=== PATIENT | female | born 1995 | race Caucasian/White ===

== ENCOUNTER 2018-02-18 08:38 | Emergency (ER) | payer OTHER ==
[2018-02-18 08:47] VITALS: TEMP 98.8; BMI 25.8
--- NOTE | 2018-02-18 08:47 | PDOC ---
History of Present Illness - General Chief Complaint: Vaginal Bleeding Stated Complaint: /VAGINAL BLEEDING Time Seen by Provider: 02/18/18 08:47 - History of Present Illness Initial Comments: 02/18/18 10:12 The patient is a 22 year old 6 week female with no significant PMH who presents for evaluation of vaginal bleeding. The patient reports that she noted some vaginal spotting yesterday evening when wiping prompting her presentation to the ED for further evaluation. She denies similar symptoms in the past and otherwise denies fevers, chills, SOB, chest pain, nausea, vomiting , abdominal pain, vaginal discharge, or changes with urination or bowel movements. Past History - Past Medical History Allergies/Adverse Reactions: Allergies Allergy/AdvReac Type Severity Reaction Status Date / Time No Known Allergies Allergy Verified 02/18/18 08:47 Home Medications: Ambulatory Orders Azithromycin [Zithromax 250mg Tablets -] 250 mg PO UTDICT #6 tab 01/10/15 COPD: No - Suicide/Smoking/Psychosocial Hx Smoking History: Never smoked Have you smoked in the past 12 months: No Hx Alcohol Use: No Drug/Substance Use Hx: No Substance Use Type: None Review of Systems - Review of Systems Comments:: 02/18/18 10:14 Constitutional: No fevers, chills, fatigue, malaise HEENT: No Rhinorrhea, nasal congestion, visual changes Cardiovascular: No chest pain, syncope, palpitations, lightheadedness Respiratory: No Cough, SOB, Hemoptysis, Gastrointestinal: No Abdominal pain, Nausea, Vomiting, Constipation, Diarrhea, Melena Genitourinary: Vaginal bleeding. No Dysuria, Frequency, Urgency, Hesitancy, Hematuria, Flank pain Musculoskeletal: No Myalgia, arthralgia Skin: No rashes, itching, bruising, pallor Neurologic: No Headache, Dizziness, Numbness, Weakness, or Tingling Psychiatric: No Hallucinations. No SI or HI *Physical Exam - Vital Signs Last Vital Signs Temp Pulse Resp BP Pulse Ox 98.8 F 91 H 18 129/77 99 02/18/18 08:42 02/18/18 08:42 02/18/18 08:42 02/18/18 08:42 02/18/18 08:42 - Physical Exam Comments: 02/18/18 10:15 General Appearance: Nourished. No Apparent Distress HEENT: No Pharyngeal Erythema, Tonsillar Exudate, Tonsillar Erythema Neck: No Cervical Lymphadenopathy Respiratory/Chest: Lungs Clear, Normal Breath Sounds. No Crackles, Rales, Rhonchi, Wheezing Cardiovascular: Regular Rhythm, Regular Rate. No Murmur, Gallops, Rubs Gastrointestinal/Abdominal: Normal Bowel Sounds, Soft. No Guarding, Rebound, Tenderness Pelvic Exam: Normal External Exam. Closed Cervical Os with some small amount of brown discharge. No CMT or Adenexal tenderness Musculoskeletal: No CVA Tenderness Extremity: Normal Capillary Refill Integumentary: Normal Color, Dry, Warm Neurologic: Fully Oriented, Alert, Normal Mood/Affect, Normal Response, ED Treatment Course - LABORATORY CBC & Chemistry Diagram: 02/18/18 09:17 02/18/18 09:17 Medical Decision Making - Medical Decision Making 02/18/18 10:16 The patient is a 22 year old 6 week female with no significant PMH who presents for evaluation of vaginal bleeding. Given the patient's history and physical exam, we will obtain a cbc, type and screen, coags, ua, beta-quant, transvaginal us to evaluate further. We will continue to monitor and reassess while here in the ED. 02/18/18 18:35 CBC, caots, ua are unremarkable. Transvaginal US demonstrates a normal 6 week as read by our radiologist. We are comfortable discharging the patient home with seo associate follow up. We discussed the results, plan, and return precautions with the patient who voiced understanding and is agreeable with the plan. *DC/Admit/Observation/Transfer Diagnosis at time of Disposition: Vaginal bleeding - Discharge Dispostion Disposition: HOME Condition at time of disposition: Stable - Referrals Referrals: Ghislaine Olivas [Primary Care Provider] - - Patient Instructions Printed Discharge Instructions: DI for Vaginal Bleeding During Additional Instructions: Please return to the ER if you experience concerning or worsening symptoms including worsening abdominal pain, vomiting, or vaginal bleeding. Your lab results and US results were normal here in the ER. Please call to schedule a follow up appointment with your BAKERY WORKER physician within 2-3 days to discuss your ER visit and further management of your symptoms. - Post Discharge Activity
--- NOTE | 2018-02-18 09:16 | PDOC ---
Attending Attestation - Resident Resident Name: Kingsley Mujica - HPI HPI: 02/18/18 10:55 Pt presents to the ED complaining of vaginal spotting that occurred with wiping only after intercourse last night. Denies vaginal discharge, fever, abdominal cramping or passing clots. + IUP on transvaginal US. Rh positive. Likely threatened Ab. Will discharge home with follow up with her OB. 02/18/18 11:25 - Physicial Exam PE: 02/18/18 11:25 Agree with resident exam. As per resident, No bleeding on vaginal exam, os is closed. Abdomen non tender on my exam. - Medical Decision Making 02/18/18 11:26 Pt presents to the ED complaining of vaginal spotting that occurred with wiping only after intercourse last night. + IUP on transvaginal US. Rh positive. Likely threatened Ab. Will discharge home with follow up with her OB 02/18/18 11:26
[2018-02-18 09:28] LABS: BASO % 0.5 % (0-2.0); EOS % 0.4 % (0-4.5); HEMATOCRIT 38.7 % (32.4-45.2); HEMOGLOBIN 13.2 GM/dL (10.7-15.3); LYMPH % 23.8 % (8-40); MCH 29.2 pg (25.7-33.7); MCHC 34.2 g/dl (32.0-36.0); MEAN CELL VOLUME 85.2 fl (80-96); MEAN PLT VOLUME 8.2 fl (7.5-11.1); MONO % 4.3 % (3.8-10.2); PLATELET COUNT 261 K/MM3 (134-434); RBC 4.54 M/mm3 (3.60-5.2); RDW 13.2 % (11.6-15.6)
[2018-02-18 09:41] LABS: INR 1.18 (0.83-1.09); PROTHROMBIN TIME (PATIENT) 13.9 SEC (9.7-13.0)
[2018-02-18 09:44] LABS: ACTIVATED PTT 34.5 SECONDS (25.2-36.5)
[2018-02-18 09:54] LABS: URINE APPEARANCE CLEAR; URINE BILIRUBIN NEGATIVE (<2.0 mg/dL); URINE COLOR YELLOW; URINE GLUCOSE (UA) NEGATIVE (NEGATIVE); URINE KETONE NEGATIVE (NEGATIVE); URINE LEUK ESTERASE NEGATIVE (NEGATIVE); URINE NITRITE NEGATIVE (NEGATIVE); URINE PROTEIN NEGATIVE (NEGATIVE); URINE UROBILINOGEN NEGATIVE mg/dL (0.2-1.0)
[2018-02-18 10:16] LABS: EPI CELLS RARE /HPF (FEW)
[2018-02-18 11:06] VITALS: BP 120/74; PULSE 84
[2018-02-18 11:41] LABS: ALBUMIN 4.2 g/dl (3.4-5.0); ALK PHOS 60 U/L (45-117); ANION GAP 9 MMOL/L (8-16); BILIRUBIN,TOTAL 0.4 mg/dL (0.2-1); BLOOD UREA NITROGEN 7 mg/dL (7-18); CALCIUM 9.1 mg/dL (8.5-10.1); CHLORIDE 104 mmol/L (98-107); CO2 24 mmol/L (21-32); CREATININE 0.5 mg/dL (0.55-1.3); GLUCOSE,RANDOM 82 mg/dL (74-106); POTASSIUM 3.9 mmol/L (3.5-5.1); SGOT/AST 16 U/L (15-37); SGPT/ALT 22 U/L (13-61); SODIUM 137 mmol/L (136-145); TOT PROT 8.4 g/dl (6.4-8.2)
== END 2018-02-18 11:07 | disposition home or self-care (01) ==
LOC: JER 08:38
DX: O26.891 Other specified pregnancy related conditions, first trimester (principal); O20.8 Other hemorrhage in early pregnancy; Z3A.01 Less than 8 weeks gestation of pregnancy
CPT/HCPCS: 36415; 76817-TC; 80053; 81003; 81015; 84702; 85025; 85610; 85730; 86850; 86900; 86901; 99282-25

== ENCOUNTER 2018-04-06 14:15 | Emergency (ER) | payer OTHER ==
[2018-04-06 14:26] VITALS: BP 120/71; TEMP 98.4; BMI 25.1
--- NOTE | 2018-04-06 16:10 | PDOC ---
History of Present Illness - General Chief Complaint: Palpitations Stated Complaint: PALPITATION Time Seen by Provider: 04/06/18 14:25 - History of Present Illness Initial Comments: Pilar Arreola is a 22yo woman at 13wks gestation by US who presents with a feeling of palpitations and racing heart while at work this afternoon. 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 She reports that when she noticed the racing heart initially she felt like she had difficulty catching her breath for a second. This has since resolved. Her sensation of racing heart and pialpitations has additionally resolved. Ms Arreola denies any chest pain, lightheadedness, nausea/vomiting, urinary symptoms, abdominal pain, vaginal discharge, or bleeding. Past History - Past Medical History Allergies/Adverse Reactions: Allergies Allergy/AdvReac Type Severity Reaction Status Date / Time No Known Allergies Allergy Verified 04/06/18 14:21 Home Medications: Ambulatory Orders Comb No.42/Folic Acid [Prena1 Chew Tablet] 1.4 mg PO DAILY 04/06/18 COPD: No - Reproductive History Is Patient Now?: Yes (#): 1 Para: 0 Therapeutic (s) & number: No Spontaneous : 0 - Immunization History Immunization Up to Date: Yes - Suicide/Smoking/Psychosocial Hx Smoking History: Never smoked Have you smoked in the past 12 months: No Hx Alcohol Use: No Drug/Substance Use Hx: No Substance Use Type: None Review of Systems - Review of Systems Comments:: General: No fevers, no chills, no weight or appetite change, no malaise HEENT: No changes in vision, no changes in hearing, no congestion, no sore throat CV: No chest pain, +Palpitations, no LE edema Pulm: No SOB, no cough, no wheezing GI: No nausea or vomiting, no change in bowel habits, no melena : No frequency, no urgency, no dysuria Musc: No back pain, no joint swelling, no recent injury Skin: No rash, no lesions, no erythema Endo: No excessive thirst, no heat/cold intolerance Heme: No unusual bruising or bleeding, no swollen glands Neuro: No syncope, no numbness/tingling, no focal weakness Vasc: No claudication Psych: No recent change in mood, no SI or HI *Physical Exam - Vital Signs Last Vital Signs Temp Pulse Resp BP Pulse Ox 98.4 F 100 H 16 120/71 100 04/06/18 14:24 04/06/18 14:24 04/06/18 14:24 04/06/18 14:24 04/06/18 14:24 - Physical Exam Comments: General: Comfortable, no acute distress HEENT: PERRL, EOMI, MMM, voice normal, normal neck ROM, no LAD Cards: RRR, no murmur appreciated Pulm: Comfortable on room air, clear to auscultation bilaterally Abd: Soft, nontender, nondistended, gravid Ext: Atraumatic. No LE edema. ROM intact. Strength 5/5 and equal bilaterally Vasc: Extremities WWP. Palpable radial and pedal pulses bilaterally Skin: Normal color, no rashes or lesions Neuro: A&Ox3, CN grossly intact, normal speech, motor/sensory grossly intact and symmetric Psych: Mood appropriate to situation Moderate Sedation - Procedure Monitoring Vital Signs: Procedure Monitoring Vital Signs Temperature 98.4 F 04/06/18 14:24 Pulse Rate 100 H 04/06/18 14:24 Respiratory Rate 16 04/06/18 14:24 Blood Pressure 120/71 04/06/18 14:24 O2 Sat by Pulse Oximetry (%) 100 04/06/18 14:24 Medical Decision Making - Medical Decision Making 04/06/18 16:05 Pilar Arreola is an otherwise healthy, 22yo woman at 13wks by US who presents with sensation of palpitations and racing heart while upset/under stress at work this afternoon. - Initial vitals with HR 100 in triage; repeat at bedside about 90-92. - EKG completed. NSR without abnormalities. HR 93 - Symptoms have resolved, Ms Arreola feels well at this time - Bedside US completed. Normal single IUP, good movement, HR 145. Gestational age 14w4d by BPD, 13w5d by CRL. - Discussed with patient. Ready to be discharged home. Should follow up with her OB; has an appointment scheduled 04/18/18 Seen and discussed with Dr Yu. Clarita Jacobsen PGY1 *DC/Admit/Observation/Transfer Diagnosis at time of Disposition: Palpitations - Discharge Dispostion Disposition: HOME Condition at time of disposition: Stable Decision to Admit order: No - Referrals Referrals: ON STAFF,NOT [Non Staff, Medical] - - Patient Instructions Printed Discharge Instructions: Common Discomforts and Bodily Changes During Additional Instructions: Discharge Instructions: You were seen in the emergency department for heart palpitations earlier today. Your vital signs were normal in the emergency department, and you had a normal EKG (heart test). You also had an ultrasound showing a normal ; the baby's heart rate was measured at 145 beats per minute. 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 If you are concerned or have additional symptoms, you may wish to reschedule your regular appointment for within the next week. Continue to take your vitamins and follow any recommendations given to you by your OB. Seek immediate medical care for any medical emergency including shortness of breath, chest pain, or altered mental status. - Post Discharge Activity Forms/Work/School Notes: Back to Work
--- NOTE | 2018-04-06 16:15 | PDOC ---
Attending Attestation - Resident Resident Name: Clarita Jacobsen - ED Attending Attestation I have performed the following: I have examined & evaluated the patient, The case was reviewed & discussed with the resident, I agree w/resident's findings & plan - HPI HPI: 04/06/18 16:10 Ms. Rose Arreola is a 22 year old female, 13 weeks , , with no significant past medical history presents to the emergency department with palpitations, since resolved. at the time, she was working at [employer] and yelling at the [employer] when she had episode of palpitations and anxiety.. (Denies increased stress, caffeine/tea intake) Allergies: NKA PCP: Ghislaine Rocha - Physicial Exam PE: 04/06/18 16:14 NAD, well appearing, PERRL, EOMI, MMM, nl conjunctiva, anicteric; neck supple. lungs clear, RRR, abdomen soft nontender. ZARATE x4, no focal neuro deficits. No peripheral edema. normal color for ethnicity, WWP. - Medical Decision Making 04/06/18 16:15 see HPI for details Vitals wnl, mild hr in 100s, but doubt PE or emergent pathology no cp or sob clear stressor/precipitant bedside pelvic sono with reassuring FHR 140s, with live IUP and no pelvic ff, BPD dating ~14 weeks. EKG NSR nonischemic Pt to be discharged in stable condition. Patient and family made aware of impression and plan, return precautions discussed (including but not limited to worsening pain or symptoms), fevers, or signs of infection, chest pain, respiratory distress, inability to tolerate oral intake, dehydration, syncope, or neurologic changes). Follow up with PMD and/or specialist as recommended, follow up information provided, take medications as instructed for duration of time. continue with supportive care, avoid triggers and precipitants. All questions answered to patient's satisfaction and expressed understanding and comfort with this. 04/06/18 16:18 04/06/18 16:19 Heart Score/ECG Review - ECG Impressions Normal ECG: Yes Comment:: 04/06/18 16:19 EKG normal sinus rhythm, no interval abnormalities, narrow QRS, ST and T wave segments and morphology normal.
[2018-04-06 16:18] VITALS: PULSE 91
--- NOTE | 2018-04-07 17:18 | EKG ---
Test Reason : Blood Pressure : / mmHG Vent. Rate : 093 BPM Atrial Rate : 093 BPM P-R Int : 134 ms QRS Dur : 088 ms QT Int : 366 ms P-R-T Axes : 057 066 040 degrees QTc Int : 455 ms NORMAL SINUS RHYTHM NORMAL ECG NO PREVIOUS ECGS AVAILABLE Confirmed by MD NAEEM, ARABELLA ([id number]) on 04/07/2018 5:18:27 PM Referred By: Confirmed By:ARABELLA HARTLEY MD
== END 2018-04-06 17:01 | disposition home or self-care (01) ==
LOC: JER 14:15
DX: O26.891 Other specified pregnancy related conditions, first trimester (principal); R00.2 Palpitations; Z3A.13 13 weeks gestation of pregnancy
CPT/HCPCS: 93005; 93010; 99283-25

== ENCOUNTER 2018-09-22 00:45 | Inpatient (IN) | payer OTHER ==
[2018-09-22] MEDS: ELECTROLYTE-148 SOLN 1,000 ML IV SCH ×2 (01:30→06:39)
[2018-09-22] MEDS ORDERED: BUTORPHANOL TARTRATE 1 MG/ML VIAL IVPB ONE (01:58)
[2018-09-22] MEDS ORDERED: PROMETHAZINE HCL 25 MG/1 ML VIAL IVPUSH ONE (01:58)
[2018-09-22] MEDS ORDERED: AMPICILLIN - 2 GM in SODIUM CHLORIDE 100 ML IVPB ONE (02:03)
--- NOTE | 2018-09-22 02:14 | HP ---
Past Medical History - Primary Care Physician PCP:: Natalya Johnson - Admission Chief Complaint: Spontaneous rupture of membranes. GBS positive in urine. IUP at 37 weeks History of Present Illness: 22 yo EDC10/08/18 EGA 37.3 week admitted with srom and gbs poistive in urine + AFM History Source: Patient - Past Medical History ...: 1 ...Para: 0 ...EDC by Dates: 10/08/18 - Past Surgical History Past Surgical History: Yes: None Hx Myomectomy: No Hx Transabdominal Cerclage: No - Smoking History Smoking history: Never smoked Have you smoked in the past 12 months: No - Alcohol/Substance Use Hx Alcohol Use: No History of Substance Use: reports: None Home Medications - Allergies Allergies/Adverse Reactions: Allergies Allergy/AdvReac Type Severity Reaction Status Date / Time No Known Allergies Allergy Verified 06/14/18 17:28 - Home Medications Home Medications: Ambulatory Orders Comb No.42/Folic Acid [Prena1 Chew Tablet] 1 tab PO DAILY 04/06/18 Review of Systems - Review of Systems Constitutional: reports: No Symptoms Eyes: reports: No Symptoms HENT: reports: No Symptoms Neck: reports: No Symptoms Cardiovascular: reports: No Symptoms Respiratory: reports: No Symptoms Gastrointestinal: reports: Abdominal Pain Genitourinary: reports: No Symptoms Breasts: reports: No Symptoms Reported Musculoskeletal: reports: No Symptoms Integumentary: reports: No Symptoms Neurological: reports: No Symptoms Endocrine: reports: No Symptoms Hematology/Lymphatic: reports: No Symptoms Psychiatric: reports: No Symptoms Physical Exam - Maternity Constitutional: Yes: Well Nourished, No Distress Cardiovascular: Yes: WNL, Regular Rate and Rhythm Lungs: Clear to auscultation Breast(s): Yes: WNL - Abdominal Exam/OB Fundal Height: 37 Number of Fetuses: Single Presentation: Vertex Contractions: Yes Monitor Mode: External Category: I - Vaginal Exam/OB Dilatation (cm): 2 Amniotic Membrane Status: Ruptured Presentation: Vertex/Position - Physical Exam Musculoskeletal: Yes: WNL Extremities: Yes: WNL Edema: No Hemorrhage Risk Assessment - Risk Factors Risk Score: 0 Risk Level: Low Risk Problem List - Problems (1) Spontaneous rupture of membranes Code(s): ODD1576 - (2) 37 weeks gestation of Code(s): Z3A.37 - 37 WEEKS GESTATION OF (3) Group B streptococcal carriage complicating Code(s): O99.820 - STREPTOCOCCUS B CARRIER STATE COMPLICATING Assessment/Plan IUP at 37.3 weeks GBS carrier in urine SROM Cat 1 Plan Ampicillin Admit to LD Observation
[2018-09-22 02:33] LABS: BASO % 0.2 % (0-2.0); EOS % 0.3 % (0-4.5); HEMATOCRIT 38.2 % (32.4-45.2); HEMOGLOBIN 12.7 GM/dL (10.7-15.3); LYMPH % 16.3 % (8-40); MCH 28.8 pg (25.7-33.7); MCHC 33.1 g/dl (32.0-36.0); MEAN CELL VOLUME 86.9 fl (80-96); MEAN PLT VOLUME 8.1 fl (7.5-11.1); MONO % 6.9 % (3.8-10.2); NEUT % 76.3 % (42.8-82.8); PLATELET COUNT 312 K/MM3 (134-434); RDW 14.6 % (11.6-15.6); WHITE BLOOD COUNT 14.8 K/mm3 (4.0-10.0)
[2018-09-22] MEDS ORDERED: AMPICILLIN SODIUM 2 GM VIAL ONE (02:39)
[2018-09-22 02:47] LABS: PROTHROMBIN TIME (PATIENT) 11.8 SEC (9.7-13.0)
[2018-09-22 02:50] VITALS: BMI 31.5
[2018-09-22 02:50] LABS: ACTIVATED PTT 28.5 SECONDS (25.2-36.5)
[2018-09-22 02:59] LABS: CALCIUM 8.8 mg/dL (8.5-10.1); CREATININE 0.5 mg/dL (0.55-1.3)
[2018-09-22] MEDS ORDERED: BUTORPHANOL TARTRATE 2 MG/ML VIAL ONE (04:04)
[2018-09-22] MEDS ORDERED: PROMETHAZINE HCL 25 MG/1 ML VIAL ONE (04:04)
[2018-09-22] MEDS ORDERED: AMPICILLIN SODIUM 1 GM VIAL ONE ×2 (06:18→09:56)
[2018-09-22] MEDS: AMPICILLIN - 1 GM in SODIUM CHLORIDE 100 ML IVPB SCH ×3 (06:30→18:11)
[2018-09-22] MEDS ORDERED: OXYTOCIN 20 UNITS in 0.9% NS 20 UNIT/1,000 ML INFUS.BAG IV ONE (07:46)
[2018-09-22] MEDS ORDERED: LIDOCAINE HCL 1% PRESERVATIVE FREE - 30ML VIAL ONE (07:46)
--- NOTE | 2018-09-22 10:00 | PN ---
Ante-Partal Exam - Subjective Subjective: Pt with co pain Vital Signs: Vital Signs Temperature 98.9 F 09/22/18 08:00 Pulse Rate 140 H 09/22/18 08:00 Respiratory Rate 20 09/22/18 08:00 Blood Pressure 132/78 09/22/18 08:00 O2 Sat by Pulse Oximetry (%) Bleeding: No Headache: No Visual changes: No Right upper quadrant pain: No - Contractions Contractions: Yes Regularity: Regular Intensity: Moderate Monitor Mode: External - Exam during Labor Variability: Moderate Category: I Monitor Decelerations: None Exam: Vaginal Dilatation (cm): 9 Effacement (%): 100 Amniotic Membrane Status: Ruptured Presentation: Vertex - Intrapartum Hemorrhage Risk Risk Score: 0 Risk Level: Low Risk - Assessment/Plan Assessment/Plan: Active Labor 37.4 weeks Prom GBS positive on abs Cat1 Plan anticipate vaginal delivery
[2018-09-22] MEDS ORDERED: BENZOCAINE 20% 57 GM BOTTLE TP PRN (10:33)
[2018-09-22] MEDS ORDERED: BENZOCAINE 28 GM HEMORRHOIDAL OINTMENT PR PRN (10:33)
[2018-09-22] MEDS ORDERED: BISACODYL 10 MG SUPP.RECT RC PRN (10:33)
[2018-09-22] MEDS ORDERED: METHYLERGONOVINE MALEATE 0.2 MG/1 ML AMP IM PRN (10:33)
[2018-09-22] MEDS ORDERED: WITCH HAZEL 50% (TUCKS) 40 PAD/JAR PAD TP PRN (10:33)
--- NOTE | 2018-09-22 10:33 | PN ---
Delivery - Delivery Vaginal Delivery: No Problems Type of Anesthesia: None Episiotomy/Laceration: 1st degree (not bleeding) EBL (cc): 250 (Nuchal cord x 1 ) Delivery, Single - Stages of Labor Placenta: Yes: Spontaneous - Condition of Application Security Architect/Tool And Production Planner Present: No Gender: Female Position: OA - [place] Feeding Plan Initial Plan: Elected not to breastfeed exclusively throughout hospitalization
[2018-09-22] MEDS ORDERED: OXYTOCIN 20 UNITS in 0.9% NS 20 UNIT/1,000 ML INFUS.BAG IV SCH (10:45)
[2018-09-22] MEDS ORDERED: IBUPROFEN 600 MG TABLET (FP) PO ONE (11:20)
[2018-09-22] MEDS ORDERED: ACETAMINOPHEN 325 MG TABLET (FP) ONE (11:20)
[2018-09-22] MEDS: ACETAMINOPHEN 325 MG TABLET (FP) PO PRN ×3 (11:25→21:03)
[2018-09-22] MEDS: IBUPROFEN 600 MG TABLET (FP) PO PRN ×3 (11:25→21:02)
[2018-09-22 11:32] LABS: VENOUS PC02 43.8 mmHg (41-51); VENOUS PH 7.28 (7.31-7.41); VENOUS PO2 41.2 mmHg (30-40)
[2018-09-22 11:33] LABS: ARTERIAL BLD GAS O2 SATURATION 77.1 % (95-98); ARTERIAL BLOOD GAS PCO2 45.7 mmHg (35-45)
[2018-09-22 11:34] LABS: ARTERIAL BLOOD GAS BASE EXCESS -5.1 meq/l (-2-2); ARTERIAL BLOOD GAS pH 7.28 (7.35-7.45)
[2018-09-22 11:35] LABS: ARTERIAL BLOOD GAS PO2 39.1 mmHg (80-105)
[2018-09-22] MEDS ORDERED: SENNOSIDES/DOCUSATE COMBO (SENNA PLUS) TABLET (UD) PO SCH (22:00)
--- NOTE | 2018-09-23 06:35 | PN ---
Post Note - Post Date of Delivery: 09/22/18 Post Day: 1 Vital Signs: Vital Signs - 24 hr 09/22/18 09/22/18 09/22/18 07:00 08:00 10:35 Temperature 98.8 F 98.9 F 98.7 F Pulse Rate 134 H 140 H 136 H Respiratory 20 20 18 Rate Blood Pressure 130/75 132/78 114/65 O2 Sat by Pulse 97 Oximetry (%) 09/22/18 09/22/18 09/22/18 10:50 11:05 11:15 Temperature Pulse Rate 130 H 114 H 121 H Respiratory 17 17 17 Rate Blood Pressure 126/58 L 129/64 137/73 O2 Sat by Pulse 97 98 100 Oximetry (%) 09/22/18 09/22/18 09/22/18 11:30 11:45 12:00 Temperature Pulse Rate 100 H 113 H 108 H Respiratory 18 18 Rate Blood Pressure 138/76 135/72 O2 Sat by Pulse Oximetry (%) 09/22/18 09/22/18 09/22/18 12:50 15:00 18:00 Temperature 98.3 F 98.9 F 98.9 F Pulse Rate 105 H 114 H 112 H Respiratory 18 18 18 Rate Blood Pressure 131/77 120/57 L 126/60 O2 Sat by Pulse Oximetry (%) 09/22/18 09/23/18 09/23/18 22:00 02:00 06:00 Temperature 98.7 F 98.5 F 98.3 F Pulse Rate 98 H 103 H 100 H Respiratory 18 18 18 Rate Blood Pressure 121/72 139/80 126/76 O2 Sat by Pulse Oximetry (%) Labs: Laboratory Results - last 24 hr 09/22/18 09/22/18 09/22/18 02:10 02:10 10:44 Anticoagulation Therapy No Result Required. Puncture Site No Result Required. ABG pH 7.28 L ABG pCO2 at Pt Temp 45.7 H ABG pO2 at Pt Temp 39.1 L* ABG HCO3 21.2 L ABG O2 Sat (Measured) 77.1 L ABG O2 Content 16.7 ABG Base Excess -5.1 L Red Test No Result Required. VBG pH POC VBG pCO2 POC VBG pO2 VBG HCO3 VBG O2 Sat (Yaneli) VBG Base Excess O2 Delivery Device No Result Required. Oxygen Flow Rate No Result Required. Vent Mode No Result Required. Vent Rate No Result Required. Mechanical Rate No Result Required. Pressure Support Vent No Result Required. RPR Titer Nonreactive Blood Type O POSITIVE Antibody Screen Negative 09/22/18 10:44 Anticoagulation Therapy Puncture Site ABG pH ABG pCO2 at Pt Temp ABG pO2 at Pt Temp ABG HCO3 ABG O2 Sat (Measured) ABG O2 Content ABG Base Excess Red Test VBG pH 7.28 L POC VBG pCO2 43.8 POC VBG pO2 41.2 H VBG HCO3 20.2 L VBG O2 Sat (Yaneli) 76.8 VBG Base Excess -6.0 L O2 Delivery Device Oxygen Flow Rate Vent Mode Vent Rate Mechanical Rate Pressure Support Vent RPR Titer Blood Type Antibody Screen - Subjective Subjective: No Complaints - Objective Afebrile: Yes Breast: Not engorged Abdomen: Soft, Non-tender Uterus: Fundus firm Vagina: Scant lochia Extremities: Non-tender - Assessment/Plan (1) Spontaneous rupture of membranes Assessment: S/P Normal (2) 37 weeks gestation of Assessment: S/P Normal Plan: Routine Care
[2018-09-23 07:03] LABS: BASO % 0.1 % (0-2.0); EOS % 0.1 % (0-4.5); HEMATOCRIT 35.4 % (32.4-45.2); HEMOGLOBIN 11.5 GM/dL (10.7-15.3); LYMPH % 14.3 % (8-40); MCH 28.6 pg (25.7-33.7); MCHC 32.5 g/dl (32.0-36.0); MEAN PLT VOLUME 8.3 fl (7.5-11.1); MONO % 4.7 % (3.8-10.2); NEUT % 80.8 % (42.8-82.8); PLATELET COUNT 306 K/MM3 (134-434); RBC 4.02 M/mm3 (3.60-5.2); RDW 14.5 % (11.6-15.6); WHITE BLOOD COUNT 22.3 K/mm3 (4.0-10.0)
[2018-09-23] MEDS ORDERED: DIPHTH,PERTUSS(ACELL),TET 0.5 ML DISP.SYRIN IM ONE (10:00)
[2018-09-23 10:41] LABS: PLATELET ESTIMATE ADEQUATE
[2018-09-23] MEDS: IBUPROFEN 600 MG TABLET (FP) PO PRN (14:24)
[2018-09-23] MEDS: ACETAMINOPHEN 325 MG TABLET (FP) PO PRN (14:25)
[2018-09-23] MEDS: AMOXICILLIN 500 MG CAPSULE (FP) PO SCH (21:16)
[2018-09-24] MEDS: ACETAMINOPHEN 325 MG TABLET (FP) PO PRN (07:21)
[2018-09-24] MEDS: IBUPROFEN 600 MG TABLET (FP) PO PRN (07:22)
[2018-09-24] MEDS: AMOXICILLIN 500 MG CAPSULE (FP) PO SCH (09:48)
--- NOTE | 2018-09-24 10:39 | DS ---
Physical Exam-TECHNICAL LABORATORY ASST Vital Signs: Vital Signs Temperature 97.8 F 09/23/18 22:00 Pulse Rate 100 H 09/23/18 22:00 Respiratory Rate 18 09/23/18 22:00 Blood Pressure 119/69 09/23/18 22:00 O2 Sat by Pulse Oximetry (%) 100 09/22/18 11:15 Constitutional: Yes: Well Nourished, No Distress Neck: Yes: WNL Cardiovascular: Yes: WNL Respiratory: Yes: WNL Gastrointestinal: Yes: WNL ....Post : Yes: Uterus firm, Uterus non-tender Breast(s): Yes: WNL Extremities: Yes: WNL Edema: No Psychiatric: Yes: WNL, Alert, Oriented Labs: CBC, BMP 09/23/18 06:00 09/22/18 02:10 Delivery - Delivery Vaginal Delivery: No Problems Type of Anesthesia: None Episiotomy/Laceration: 1st degree (not bleeding) EBL (cc): 250 (Nuchal cord x 1 ) Delivery, Single - Stages of Labor Date 1st Stage Initiatied: 09/21/18 Time 1st Stage Initiated: 23:00 Date 2nd Stage Initiated: 09/22/18 Time 2nd Stage Initiated: 09:30 Date of Delivery: 09/22/18 Time of Delivery: 10:21 Time Placenta Delivered: 10:23 Placenta: Yes: Spontaneous - Condition of Greens Cutter/Meat Grader Present: No Infant Gender: Female Weight: 8 lb 6 oz Position: OA Total Hours ROM (Hrs/Mins): 11 hours 23 minutes - 1 Minute Total Score: 8 5 Minutes Total Score: 8 - Feeding Plan Initial Plan: Elected not to breastfeed exclusively throughout hospitalization Discharge Summary Reason For Visit: LABOR Current Active Problems 37 weeks gestation of (Acute) Group B streptococcal carriage complicating (Acute) Spontaneous rupture of membranes (Acute) Procedures: Principal: Normal vaginal delivery Condition: Good - Instructions Diet, Activity, Other Instructions: Physical activity Resume your normal everyday activity as tolerated no heavy lifting or exercise until seen by your surgeon. You may walk unlimited morgan of and climb stairs. You may resume driving the car when you feel safe and comfortable behind the wheel. No sexual activity as instructed. Wound care If you have a bandage, leave it on, and keep dry for 48-72 hours. After that time discard the outer bandage. If they are tapes on the skin under the out of bandage leave them in place. They will peel off in the next 7 to 10 days. Do Not Peel them off. You may shower the day after surgery. If there are tapes present on the skin, you may shower over them. Diet There are no dietary restrictions. Eat healthy, high-fiber foods. Drink 6 to 8 glasses of liquid each day. This will assist in keeping your bowels are regular. Pain management You may take Tylenol or acetaminophen or Ibuprofen (for example, Motrin, Advil etc.) from my pain prescription medication is ordered should be taken as prescribed for moderate to severe pain. Call MD for any of the following: Severe pain not relieved by medication Fever of 101 or higher Excessive bleeding or drainage on dressing Inability to urinate Disposition: HOME - Home Medications Comprehensive Discharge Medication List: Ambulatory Orders Comb No.42/Folic Acid [Prena1 Chew Tablet] 1 tab PO DAILY 04/06/18 Ibuprofen [Motrin -] 600 mg PO QID #28 tablet 09/24/18
[2018-09-24 11:58] VITALS: BP 138/84; PULSE 102; TEMP 98.2
== END 2018-09-24 12:35 | disposition home or self-care (01) | DRG 560 ==
LOC: JLDR 00:45 → J3W 12:43
PROVIDERS: ADMIT Obstetrics & Gynecology; ATTEND Obstetrics & Gynecology
PROC: 0HQ9XZZ Repair Perineum Skin, External Approach (ICD-10-PCS; principal; 2018-09-22)
PROC: 10E0XZZ Delivery of Products of Conception, External Approach (ICD-10-PCS; 2018-09-22)
DX: O70.0 First degree perineal laceration during delivery (principal); O99.824 Streptococcus B carrier state complicating childbirth; Z3A.37 37 weeks gestation of pregnancy; Z37.0 Single live birth
CPT/HCPCS: 36415; 36600; 59409; 80048; 82803; 85025; 85610; 85730; 86593; 86850; 86900; 86901; 87389; 90715

== ENCOUNTER 2020-02-22 03:25 | Inpatient (IN) | payer OTHER ==
[2020-02-22] MEDS ORDERED: ELECTROLYTE-148 SOLN 500 ML IV ONE ×2 (04:00→05:00)
--- OUTSIDE RECORDS SUMMARY | 2020-02-22 04:25 | XMS ---
:1995 Author Organization [facility] Care Team Providers Name Role Phone NisaSharron ramos Maura Unavailable Unavailable Aszalos, Mauar Unavailable Unavailable Aszalos, Maura Unavailable Unavailable Aszalos, Maura Unavailable Unavailable Aszalos, Maura Unavailable Unavailable Aszalos, Maura Unavailable Unavailable Aszalos, Maura Unavailable Unavailable Aszalos, Maura Unavailable Unavailable Aszalos, Maura Unavailable Unavailable Olivas Unavailable Unavailable Olivas Unavailable Unavailable Olivas Unavailable Unavailable Olivas Unavailable Unavailable Olivas Unavailable Unavailable Olivas Unavailable Unavailable Olivas Unavailable Unavailable Olivas Unavailable Unavailable Olivas Unavailable Unavailable Olivas Unavailable Unavailable Bergman Unavailable [phone] Bergman Unavailable [phone] Bridgette Flores MD Unavailable Unavailable Bridgette Flores MD Unavailable Unavailable Bridgette Flores MD Unavailable Unavailable Bridgette Flores MD Unavailable Unavailable Bridgette Flores MD Unavailable Unavailable Bridgette Flores MD Unavailable Unavailable Bridgette Flores MD Unavailable Unavailable Bridgette Flores MD Unavailable Unavailable Bridgette Flores MD Unavailable Unavailable Bridgette Flores MD Unavailable Unavailable Bridgette Flores MD Unavailable Unavailable Bridgette Flores MD Unavailable Unavailable Bridgette Flores MD Unavailable Unavailable Bridgette Flores MD Unavailable Unavailable Bridgette Flores MD Unavailable Unavailable Bottyogi Unavailable [phone] Bottrell Unavailable [phone] Re-disclosure Warning The records that you are about to access may contain information from federally- assisted alcohol or drug abuse programs. If such information is present, then the following federally mandated warning applies: This information has been disclosed to you from records protected by federal confidentiality rules (42 CFR part 2). The federal rules prohibit you from making any further disclosure of this information unless further disclosure is expressly permitted by the written consent of the person to whom it pertains or as otherwise permitted by 42 CFR part 2. A general authorization for the release of medical or other information is NOT sufficient for this purpose. The Federal rules restrict any use of the information to criminally investigate or prosecute any alcohol or drug abuse patient.The records that you are about to access may contain highly sensitive health information, the redisclosure of which is protected by Article 27-F of the [facility] Public Health law. If you continue you may haveaccess to information: Regarding HIV / AIDS; Provided by facilities licensed or operated by the [facility] Office of Mental Health; or Provided by the [facility] Office for People With Developmental Disabilities. If such information is present, then the following [facility] mandated warning applies: This information has been disclosed to you from confidential records which are protected by state law. State law prohibits you from making any further disclosure of this information without the specific written consent of the person to whom it pertains, or as otherwise permitted by law. Any unauthorized further disclosure in violation of state law may result in a fine or mcc sentence or both. A general authorization for the release of medical or other information is NOT sufficient authorization for further disclosure. Encounters Encounter Providers Location Date Indications Data Source(s ) Attender: [facility] 09/10/2019 THELMA Welch ([facility] [place] 02:57:00 [facility] PM EDT - Center) 09/10/2019 02:57:00 PM EDT Outpatient Attender: Sharron Salas 07/01/2019 [facility]em[place]ordmitter: 10:03:00 Medical Center Sharron Guevaraeferrer: Sharron Queen Attender: [facility] 07/01/2019 NEXTG EN ([facility] 10:03:00 [facility] AM EST - Center) 07/01/2019 10:03:00 AM EST Attender: [facility] 06/27/2019 NEXTG EN ([facility] 10:35:00 [facility] AM EST - Center) 06/27/2019 10:35:00 AM EST Attender: [facility] 03/22/2019 NEXTGE N ([facility] 11:08:00 [facility] AM EST - Center) 03/22/2019 11:08:00 AM EST Outpatient Attender: Ghislaine Salas 01/28/2019 [facility] 10:29:00 Medical Ce nter Ghislaine AM EDT VelezReferrer: Ghislaine Olivas OutpatientOFFICE/ Attender: [facility] 01/28/2019 NEXTGEN ([facility] OUTPATIENT VISIT, [facility] 10:29:00 Kun Medical EST AM EDT - Center) 01/28/2019 10:29:00 AM EDT Outpatient Attender: Ghislaine Salas 01/21/2019 [facility] Last bobbys VelezAdmitter: 10:32:00 Medical Ce nter Ghislaine AM EDT VelezReferrer: Ghislaine Olivas OutpatientOFFICE/ Attender: [facility] 01/21/2019 NEXTGEN ([facility] OUTPATIENT VISIT, [facility] 10:32:00 [facility] Medical EST AM EDT - Center) 01/21/2019 10:32:00 AM EDT Immunizations Vaccine Date Status Description Data Source(s) MMR 01/28/2019 12:00:00 AM completed MMR NEXTG EN ([facility] EDT [place]) Source: New Immunization Record Medications Medication Brand Start Product Dose Route Administrative Pharmacy [facility] Indications Reaction Description Data Name Date Form Instructions Instructions Source(s) Clotrimazol Alevaz 07/01/ active Clotrim azole NEXTGEN e 0.01 ol 1 % 2020 0.01 MG/MG (Ivan t MG/MG topica 12:00: Topical Kun Topical l 00 AM Ointment Medical Ointment ointme EST [Alevazol] Ty ter) [Alevazol] nt Alevazol 1 % topical ointment Can substitute generic + DHA 95/iron 01/21/2019 active take 1 NEXTGEN 28 mg iron-800 fum/folic/dha 12:00:00 AM tablet ([facility] mcg-200 mg oral EDT daily [facility]) + DHA 95/iron 02/12/2018 complet ed take 1 NEXTGEN 28 mg iron-800 fum/folic/dha 12:00:00 AM tablet ([facility] mcg-200 mg oral EDT daily [facility]) Pyridoxine pyridoxine 02/12/2018 completed Take 1 NEXTGEN Hydrochloride 25 (vitamin B6) 25 12:00:00 AM tablet 3 ([facility] MG Oral Tablet mg tablet EDT times a [facility] pyridoxine day Medical (vitamin B6) 25 Cent er) mg tablet Insurance Providers Payer name Policy type Policy ID Covered Covered libertarian's Policy P ron / Coverage libertarian ID relationship to [employer] ormation type phillips DAVID [id number] SP [id number] HEALTH NON CAP O MEDICAID W [id number] 01 [id number] 97 [facility] MEDICAID [id number] SP [id number] [facility] [id number] SP [id number] MEDICAID COMM PLAN Problems, Conditions, and Diagnoses Code Display Name Description Problem Type Effective Data Dates Source(s) Z32.01 Encounter for ENCOUNTER FOR Diagnosis 07/01/2019 [facility] test, TEST, 10:03:00 AM Med ical result positive RESULT POSITIVE EST Cent er B35.3 Tinea pedis TINEA PEDIS Diagnosis 07/01/2019 [facility] ramos 10:03:00 AM Medical EST Center Z68.25 Body mass index BODY MASS INDEX Diagnosis 01/28/2019 Ivan Tristan (BMI) 25.0-25.9, (BMI) 25.0-25.9, 10:29:00 AM edical adult ADULT EDT Center Z02.9 Encounter for ENCOUNTER FOR Diagnosis 01/28/2019 [facility] administrative ADMINISTRATIVE 10:29:00 AM Medic al examinations, EXAMINATIONS, EDT Center unspecified UNSPECIFIED Z23 Encounter for ENCOUNTER FOR Diagnosis 01/28/2019 [facility] immunization IMMUNIZATION 10:29:00 AM Medical EDT Center Z11.1 Encounter for ENCOUNTER FOR Diagnosis 01/28/2019 [facility] screening for SCREENING FOR 10:29:00 AM Medical respiratory RESPIRATORY EDT Center tuberculosis TUBERCULOSIS Z02.1 Encounter for ENCOUNTER FOR Diagnosis 01/28/2019 [facility] pre-employment PRE-EMPLOYMENT 10:29:00 AM Medic al examination EXAMINATION EDT Center Surgeries/Procedures Procedure Description Date Indications Data Source(s) URINE TEST 07/01/2019 NEXTGEN ([facility] 12:00:[address] [facility] - 07/01/2019 Center) 12:00:00 AM EST OFFICE/OUTPATIENT VISIT, 01/28/2019 NEX TGEN ([facility] EST 12:00:[address] [facility] - 01/28/2019 Center) 12:00:00 AM EDT MMR VACCINE, SC 01/28/2019 NEXTGEN ([facility] nt 12:00:[address] [facility] - 01/28/2019 Center) 12:00:00 AM EDT Immunization 01/28/2019 NEXTGEN ([facility] Administration 12:00:00 AM EDT [facility] dical - 01/28/2019 Center) 12:00:00 AM EDT OFFICE/OUTPATIENT VISIT, 01/21/2019 NEX TGEN ([facility] EST 12:00:[address] [facility] - 01/21/2019 Center) 12:00:00 AM EDT Results ID Date Data Source [id number] 10/03/2019 12:00:00 AM EDT [facility] Name Value Range Interpretation Code Description Data Lea rce(s) Supporting Document(s ) 2018-nCoV [facility] RNA XXX PATTI+probe- Imp This lab was ordered by [facility] and reported by [employer] ID Date Data Source [id number] 09/10/2019 12:00:00 AM EDT [facility] Name Value Range Interpretation Code Description Data Lea rce(s) Supporting Document(s ) 2018-nCoV [facility] RNA XXX PATTI+probe- Imp This lab was ordered by [employer] [id number] and reported by [employer] ID Date Data Source [id number] 08/26/2019 12:00:00 AM EDT [facility] Name Value Range Interpretation Code Description Data Lea rce(s) Supporting Document(s ) nCoV [facility] RNA XXX PATTI+probe- Imp This lab was ordered by [employer] [id number] and reported by [employer] ID Date Data Source [id number] 01/21/2019 11:47:00 [facility] Name Value Range Interpretation Description Data Sup porting Code Source(s) Document(s ) Leukocytes 4.4-11.0 <content [facility] [#/volume] in styleCode="Bold Kun Blood by ">White Blood Medical Automated count Cell Count Center </content>7.74 KCUMM<content styleCode="Ital ics"> (4.4-11.0 KCUMM)</content > Erythrocytes 4.0-5.1 <content [facility] [#/volume] in styleCode="Bold [facility] Blood by ">Red Blood Medical Automated count Cell Count Center </content>4.49 MCUMM<content styleCode="Ital ics"> (4.0-5.1 MCUMM)</content > Hemoglobin 12.3-16. <content [facility] [Mass/volume] in 0 styleCode="Bold Kun Blood ">Hemoglobin Medical </content>13.3 Center G/DL<content styleCode="Ital ics"> (12.3-16.0 G/DL)</content> Hematocrit 36.0-46. <content [facility] [Volume 0 styleCode="Bold [facility] Fraction] of ">Hematocrit Medical Blood by </content>39.6 Center Automated count %<content styleCode="Ital ics"> (36.0-46.0 %)</content> Erythrocyte mean 26.0-34. <content [facility] corpuscular 0 styleCode="Bold Kun hemoglobin ">Mean Medical [Entitic mass] Corposcular Center by Automated Hemoglobin count </content>29.6 PG<content styleCode="Ital ics"> (26.0-34.0 PG)</content> Erythrocyte mean 32.0-37. <content [facility] corpuscular 0 styleCode="Bold Kun hemoglobin ">Mean Corpus. Medical concentration Hgb Center [Mass/volume] by Concentration Automated count (MCHC) </content>33.6 G/DL<content styleCode="Ital ics"> (32.0-37.0 G/DL)</content> Platelets 130-400 <content [facility] [#/volume] in styleCode="Bold Kun Blood by ">Platelet Medical Automated count Count Center </content>289 KCUMM<content styleCode="Ital ics"> (130-400 KCUMM)</content > Erythrocyte mean 80.0-100 <content [facility] corpuscular .0 styleCode="Bold Kun volume [Entitic ">Mean Medical volume] by Corpuscular Center Automated count Volume </content>88.2 FL<content styleCode="Ital ics"> (80.0-100.0 FL)</content> Erythrocyte 11.5-14. <content [facility] distribution 5 styleCode="Bold Kun width [Ratio] by ">Red Cell Medical Automated count Distribution Center Width </content>13.7 %<content styleCode="Ital ics"> (11.5-14.5 %)</content> UNK 1.6-7.3 <content Saint styleCode="Bold Kun ">Neutrophil Medical Count Center </content>5.65 KCUMM<content styleCode="Ital ics"> (1.6-7.3 KCUMM)</content > Lymphocytes 24.0-44. Below low normal <content [facility] [#/volume] in 0 styleCode="Bold Kun Blood by ">Lymphocyte Medical Automated count </content>21.3 Center % L<content styleCode="Ital ics"> (24.0-44.0 %)</content> UNK 1.0-4.8 <content Saint styleCode="Bold Kun ">Lymphocyte Medical Count Center </content>1.65 KCUMM<content styleCode="Ital ics"> (1.0-4.8 KCUMM)</content > Neutrophils 36-66 Above high <content [facility] [#/volume] in normal styleCode="Bold Kun Blood by ">Neutrophil Medical Automated count </content>73.0 Center % H<content styleCode="Ital ics"> (36-66 %)</content> Monocytes 3.0-10.0 <content [facility] [#/volume] in styleCode="Bold Kun Blood by ">Monocyte Medical Automated count </content>5.0 Center %<content styleCode="Ital ics"> (3.0-10.0 %)</content> Platelet mean 8.0-11.0 <content [facility] volume [Entitic styleCode="Bold Kun volume] in Blood ">Mean Platelet Medical by Automated Volume Center count </content>9.9 FL<content styleCode="Ital ics"> (8.0-11.0 FL)</content> UNK 0.2-0.9 <content Saint styleCode="Bold Kun ">Monocyte Medical Count Center </content>0.39 KCUMM<content styleCode="Ital ics"> (0.2-0.9 KCUMM)</content > UNK 0.0-0.3 <content Saint styleCode="Bold Kun ">Basophil Medical Count Center </content>0.03 KCUMM<content styleCode="Ital ics"> (0.0-0.3 KCUMM)</content > UNK 0.0-0.6 <content [facility] styleCode="Bold Kun ">Eosinophil Medical Count Center </content>0.00 KCUMM<content styleCode="Ital ics"> (0.0-0.6 KCUMM)</content > Eosinophils 0-5.0 <content [facility] [#/volume] in styleCode="Bold Kun Blood by ">Eosinophil Medical Automated count </content>0.0 Center %<content styleCode="Ital ics"> (0-5.0 %)</content> Basophils 0.0-1.0 <content [facility] [#/volume] in styleCode="Bold Kun Blood by ">Basophil Medical Automated count </content>0.4 Center %<content styleCode="Ital ics"> (0.0-1.0 %)</content> UNK 0.0 <content [facility] styleCode="Bold Kun ">Nucleated Red Medical Blood Cell Center Count </content>0.00 KCUMM<content styleCode="Ital ics"> (0.0 KCUMM)</content > UNK 0-0.1 <content [facility] styleCode="Bold Kun ">Immature Medical Granulocyte Center Count </content>0.02 KCUMM<content styleCode="Ital ics"> (0-0.1 KCUMM)</content > UNK < 1 <content [facility] styleCode="Bold Kun ">Immature Medical Granulocyte Center Ratio </content>0.3 %<content styleCode="Ital ics"> (< 1 %)</content> UNK 0 <content [facility] styleCode="Bold Kun ">Nucleated Red Medical Blood Cell Center </content>0.0 /100<content styleCode="Ital ics"> (0 /100)</content> Procedure Social History Code Duration Value Status Description Data Source(s ) Caffeine Use 07/01/2019 completed NEXTGEN (Kiran nt Details 12:00:00 AM EST [facility]) Smoking 07/01/2019 Unknown if completed Unknown if ever NEXTGEN ( [facility] 12:00:00 AM EST ever smoked smoked [facility]) 01/21/2019 Never smoked completed Never smoked NEXTGEN (S aint 12:00:00 AM EDT tobacco tobacco [facility]) Vital Signs ID Date Data Source UNK Name Value Range Interpretation Code Description Data Source(s) Oxygen saturation 97 % 97 % REPLACED BY [facility] ([facility] in Arterial blood [facility] by Pulse oximetry Center) Body mass index 25.92 kg/m2 Overweight 25.92 kg/m2 REPLACED BY [facility] ([facility] (BMI) [Ratio] [facility]) Respiratory rate 19 /min 19 /min REPLACED BY [facility] ([facility]) Body temperature 36.61 Stacy 36.61 Stacy REPLACED BY [facility] ([facility]) Heart rate 100 /min 100 /min REPLACED BY [facility] ([facility]) Diastolic blood 73 mm[Hg] 73 mm[Hg] REPLACED BY [facility] ( [facility] pressure [facility]) Systolic blood 127 mm[Hg] 127 mm[Hg] REPLACED BY [facility] (S aint pressure [facility]) Body weight 78.471 kg 78.471 kg REPLACED BY [facility] ([facility]) Body height 173.99 cm 173.99 cm REPLACED BY [facility] ([facility]) Oxygen saturation 97 % 97 % REPLACED BY [facility] ([facility] in Arterial blood [facility] by Pulse oximetry Center) Body mass index 25.02 kg/m2 Overweight 25.02 kg/m2 NEXTGEN ([facility] (BMI) [Ratio] [facility]) Respiratory rate 20 /min 20 /min REPLACED BY [facility] ([facility]) Body temperature 36.89 Stacy 36.89 Stacy REPLACED BY [facility] ([facility]) Heart rate 81 /min 81 /min REPLACED BY [facility] ([facility]) Diastolic blood 66 mm[Hg] 66 mm[Hg] NEXTGEN ( [facility]) Systolic blood 103 mm[Hg] 103 mm[Hg] [facility] Body weight 75.750 kg 75.750 kg REPLACED BY [facility] ([facility]) Body height 173.99 cm 173.99 cm REPLACED BY [facility] ([facility]) Oxygen saturation 97 % 97 % REPLACED BY [facility] ([facility] in Arterial blood [facility] by Pulse oximetry Center) Body mass index 25.41 kg/m2 Overweight 25.41 kg/m2 [facility] ([facility] (BMI) [Ratio] [facility]) Respiratory rate 20 /min 20 /min REPLACED BY [facility] ([facility]) Body temperature 36.56 Stacy 36.56 Stacy REPLACED BY [facility] ([facility]) Heart rate 87 /min 87 /min REPLACED BY [facility] ([facility]) Diastolic blood 71 mm[Hg] 71 mm[Hg] REPLACED BY [facility] ( [facility]) Systolic blood 113 mm[Hg] 113 mm[Hg] [facility]) Body weight 76.929 kg 76.929 kg REPLACED BY [facility] ([facility]) Body height 173.99 cm 173.99 cm REPLACED BY [facility] ([facility]) Patient Treatment Plan of Care Planned Activity Planned Date Details Description Data Source (s) Clotrimazole 0.01 MG/MG 07/01/2019 12:00:00 [facility] Topical Ointment AM [facility] ical [Alevazol] [place]) + DHA 28 mg 01/21/2019 12:00:00 NEXTGEN ([facility]-800 [facility]cg[facility] Pyridoxine Hydrochloride 02/12/2018 12:00:00 NEXTGEN ([facility] 25 MG Oral Tablet AM EDT [facility]) + DHA 28 mg 02/12/2018 12:00:00 NEXTGEN ([facility] iron-800 mcg-200 mg oral AM EDT [facility])
[2020-02-22] MEDS ORDERED: OXYTOCIN 20 UNITS in 0.9% NS 20 UNIT/1,000 ML INFUS.BAG IV ONE (04:35)
[2020-02-22] MEDS ORDERED: AMPICILLIN SODIUM 2 GM VIAL ONE (04:35)
[2020-02-22 04:40] LABS: BASO % 0.1 % (0-2.0); HEMOGLOBIN 12.6 GM/dL (10.7-15.3); LYMPH % 8.5 % (8-40); MEAN CELL VOLUME 85.4 fl (80-96); MEAN PLT VOLUME 8.6 fl (7.5-11.1); MONO % 2.8 % (3.8-10.2); NEUT % 88.6 % (42.8-82.8); PLATELET COUNT 248 K/MM3 (134-434); RBC 4.33 M/mm3 (3.60-5.2); RDW 15.3 % (11.6-15.6); WHITE BLOOD COUNT 12.4 K/mm3 (4.0-10.0)
[2020-02-22 04:58] LABS: POTASSIUM 3.5 mmol/L (3.5-5.1)
[2020-02-22 04:59] LABS: BLOOD UREA NITROGEN 7.4 mg/dL (7-18); CALCIUM 8.7 mg/dL (8.5-10.1); INR 1.03 (0.83-1.09); PROTHROMBIN TIME (PATIENT) 12.6 SEC (9.7-13.0)
[2020-02-22 05:02] LABS: ACTIVATED PTT 27.2 SECONDS (25.2-36.5)
[2020-02-22 05:03] LABS: CREATININE 0.5 mg/dL (0.55-1.3)
--- NOTE | 2020-02-22 05:10 | HP ---
Past Medical History - Primary Care Physician PCP:: Neena Reynaga - Admission Chief Complaint: Labor History of Present Illness: 24 yo ega 39 week edc 02/29/2020 admitted with bulging membranes. Hx of Covid + GBS History Source: Patient Limitations to Obtaining History: No Limitations - Past Medical History ...: 2 ...Para: 1 - Past Surgical History Past Surgical History: Yes: None Hx Myomectomy: No Hx Transabdominal Cerclage: No - Smoking History Smoking history: Never smoked Have you smoked in the past 12 months: No - Alcohol/Substance Use Hx Alcohol Use: No History of Substance Use: reports: None - Social History Usual Living Arrangement: Yes: With Parent Do you think of yourself as: Straight/Heterosexual History of Recent Travel: No Home Medications - Allergies Allergies/Adverse Reactions: Allergies Allergy/AdvReac Type Severity Reaction Status Date / Time No Known Allergies Allergy Verified 09/22/18 07:51 - Home Medications Home Medications: Ambulatory Orders Comb No.42/Folic Acid [Prena1 Chew Tablet] 1 tab PO DAILY 04/06/18 Amoxicillin/Potassium Clav [Augmentin 500-125 Tablet] 1 each PO BID 5 Days #10 tablet 09/24/18 Ibuprofen [Motrin -] 600 mg PO QID #28 tablet 09/24/18 Review of Systems - Review of Systems Constitutional: reports: No Symptoms Eyes: reports: No Symptoms HENT: reports: No Symptoms Neck: reports: No Symptoms Cardiovascular: reports: No Symptoms Respiratory: reports: No Symptoms Gastrointestinal: reports: No Symptoms Genitourinary: reports: No Symptoms Breasts: reports: No Symptoms Reported Musculoskeletal: reports: No Symptoms Integumentary: reports: No Symptoms Neurological: reports: No Symptoms Endocrine: reports: No Symptoms Hematology/Lymphatic: reports: No Symptoms Psychiatric: reports: No Symptoms Physical Exam - Maternity Constitutional: Yes: Well Nourished, No Distress Lungs: Clear to auscultation Breast(s): Yes: WNL - Abdominal Exam/OB Fundal Height: 39 Number of Fetuses: Single Presentation: Vertex Contractions: Yes Regularity: Regular Intensity: Mild/Mod Monitor Mode: External Heart Rate Location: [facility] Category: I - Vaginal Exam/OB Dilatation (cm): FD Effacement (%): 100 Amniotic Membrane Status: Bulging Amniotic Fluid: Yes: Clear Presentation: Vertex/Position Station: -2 - Physical Exam Musculoskeletal: Yes: WNL Extremities: Yes: WNL Edema: No Psychiatric: Yes: WNL, Alert, Oriented - Labs Lab Results: CBC, BMP 02/22/20 04:30 02/22/20 04:30 Problem List - Problems (1) Group B streptococcal carriage complicating Problems reviewed: Yes Code(s): O99.820 - STREPTOCOCCUS B CARRIER STATE COMPLICATING (2) 39 weeks gestation of Problems reviewed: Yes Code(s): Z3A.39 - 39 WEEKS GESTATION OF (3) Labor established Code(s): ZBV3059 - (4) Second stage of labor not established Code(s): [id number] - Assessment/Plan UP at 39 week GBS positive Hx Covid positive with negtive x 3 after labor 2nd stage Plan anticipate vaginal delivery
[2020-02-22] MEDS ORDERED: BENZOCAINE 28 GM HEMORRHOIDAL OINTMENT PR PRN (05:12)
[2020-02-22] MEDS ORDERED: WITCH HAZEL 50% (TUCKS) 40 PAD/JAR PAD TP PRN (05:12)
[2020-02-22] MEDS ORDERED: METHYLERGONOVINE MALEATE 0.2 MG/1 ML AMP IM PRN (05:12)
[2020-02-22] MEDS ORDERED: BISACODYL 10 MG SUPP.RECT PR PRN (05:12)
[2020-02-22] MEDS ORDERED: BENZOCAINE 20% 57 GM BOTTLE TP PRN (05:12)
[2020-02-22] MEDS ORDERED: ELECTROLYTE-148 SOLN 1,000 ML IV SCH ×2 (05:15→07:00)
[2020-02-22 05:16] VITALS: BMI 28.3
[2020-02-22] MEDS ORDERED: AMPICILLIN - 2 GM in SODIUM CHLORIDE 100 ML IVPB ONE (05:45)
--- NOTE | 2020-02-22 05:47 | PN ---
Delivery - Delivery Vaginal Delivery: No Problems, Spontaneous Episiotomy/Laceration: None EBL (cc): 250 Delivery, Single - Stages of Labor Placenta: Yes: Spontaneous - Condition of Potter Or Ceramic Artist/Rubble Placer Present: No Infant Gender: Female Position: OA - Feeding Plan Initial Plan: Elected not to breastfeed exclusively throughout hospitalization
[2020-02-22] MEDS ORDERED: OXYTOCIN 20 UNITS in 0.9% NS 20 UNIT/1,000 ML INFUS.BAG IV SCH (06:00)
[2020-02-22] MEDS: IBUPROFEN 600 MG TABLET (FP) PO PRN ×3 (06:34→16:29)
[2020-02-22] MEDS: ACETAMINOPHEN 325 MG TABLET (FP) PO PRN ×3 (06:35→16:30)
[2020-02-22] MEDS ORDERED: ACETAMINOPHEN 325 MG TABLET (FP) ONE (06:38)
[2020-02-22] MEDS ORDERED: IBUPROFEN 600 MG TABLET (FP) PO ONE (06:38)
[2020-02-22] MEDS: AMPICILLIN - 1 GM in SODIUM CHLORIDE 100 ML IVPB SCH ×3 (09:09→16:16)
[2020-02-23 10:04] LABS: BASO % 0.4 % (0-2.0); EOS % 0.8 % (0-4.5); HEMATOCRIT 32.9 % (32.4-45.2); HEMOGLOBIN 11.1 GM/dL (10.7-15.3); LYMPH % 23.5 % (8-40); MCH 28.8 pg (25.7-33.7); MCHC 33.7 g/dl (32.0-36.0); MEAN CELL VOLUME 85.4 fl (80-96); MEAN PLT VOLUME 8.6 fl (7.5-11.1); MONO % 4.4 % (3.8-10.2); NEUT % 70.9 % (42.8-82.8); PLATELET COUNT 238 K/MM3 (134-434); RBC 3.85 M/mm3 (3.60-5.2); WHITE BLOOD COUNT 9.7 K/mm3 (4.0-10.0)
[2020-02-23] MEDS: ACETAMINOPHEN 325 MG TABLET (FP) PO PRN (19:59)
[2020-02-23] MEDS: IBUPROFEN 600 MG TABLET (FP) PO PRN (19:59)
--- NOTE | 2020-02-24 07:38 | DS ---
Physical Exam-LOAD DISPATCHER LOCAL Vital Signs: Vital Signs Temperature 98.9 F 02/23/20 22:00 Pulse Rate 93 H 02/23/20 22:00 Respiratory Rate 18 02/23/20 22:00 Blood Pressure 131/76 02/23/20 22:00 O2 Sat by Pulse Oximetry (%) 100 02/22/20 07:00 Constitutional: Yes: Well Nourished, No Distress Gastrointestinal: Yes: WNL, Soft ....Post : Yes: Uterus firm, Uterus non-tender Breast(s): Yes: WNL Musculoskeletal: Yes: WNL Extremities: Yes: WNL Edema: No Neurological: Yes: WNL, Alert, Oriented Labs: CBC, BMP 02/23/20 09:05 02/22/20 04:30 Delivery - Delivery Vaginal Delivery: No Problems, Spontaneous Type of Anesthesia: None Episiotomy/Laceration: None EBL (cc): 250 Delivery, Single - Stages of Labor Date 1st Stage Initiatied: 02/22/20 Time 1st Stage Initiated: 01:00 Date 2nd Stage Initiated: 02/22/20 Time 2nd Stage Initiated: 05:00 Date of Delivery: 02/22/20 Time of Delivery: 05:20 Time Placenta Delivered: 05:30 Placenta: Yes: Spontaneous - Condition of Abstract Manager/Pluck Trimmer Present: No Infant Gender: Female Weight: 10 lb Position: OA Total Hours ROM (Hrs/Mins): 30MIN - 1 Minute Total Score: 9 5 Minutes Total Score: 9 - Feeding Plan Initial Plan: Elected not to breastfeed exclusively throughout hospitalization Discharge Summary Problems reviewed: Yes Reason For Visit: LABOR Current Active Problems 39 weeks gestation of (Acute) Labor established (Acute) Second stage of labor not established (Acute) Procedures: Principal: normal vaginal delivery Hospital Course: unremarkable Condition: Good - Instructions Diet, Activity, Other Instructions: Physical activity Resume your normal everyday activity as tolerated no heavy lifting or exercise until seen by your surgeon. You may walk unlimited morgan of and climb stairs. You may resume driving the car when you feel safe and comfortable behind the wheel. No sexual activity as instructed. Wound care If you have a bandage, leave it on, and keep dry for 48-72 hours. After that time discard the outer bandage. If they are tapes on the skin under the out of bandage leave them in place. They will peel off in the next 7 to 10 days. Do Not Peel them off. You may shower the day after surgery. If there are tapes present on the skin, you may shower over them. Diet There are no dietary restrictions. Eat healthy, high-fiber foods. Drink 6 to 8 glasses of liquid each day. This will assist in keeping your bowels are regular. Pain management You may take Tylenol or acetaminophen or Ibuprofen (for example, Motrin, Advil etc.) from my pain prescription medication is ordered should be taken as p rescribed for moderate to severe pain. Call MD for any of the following: Severe pain not relieved by medication Fever of 101 or higher Excessive bleeding or drainage on dressing Inability to urinate Referrals: Neena Reynaga MD [Staff Physician] - Disposition: HOME - Home Medications Comprehensive Discharge Medication List: Ambulatory Orders Comb No.42/Folic Acid [Prena1 Chew Tablet] 1 tab PO DAILY 04/06/18 Amoxicillin/Potassium Clav [Augmentin 500-125 Tablet] 1 each PO BID 5 Days #10 tablet 09/24/18 Ibuprofen [Motrin -] 600 mg PO QID #28 tablet 09/24/18
[2020-02-24 09:45] VITALS: BP 126/85; PULSE 81; TEMP 98.1
[2020-02-24] MEDS ORDERED: DIPHTH,PERTUSS(ACELL),TET 0.5 ML DISP.SYRIN IM ONE (10:00)
== END 2020-02-24 12:05 | disposition home or self-care (01) | DRG 560 ==
LOC: JLDR 03:25 → J3W 08:00
PROVIDERS: ADMIT Obstetrics & Gynecology; ATTEND Obstetrics & Gynecology
PROC: 10E0XZZ Delivery of Products of Conception, External Approach (ICD-10-PCS; principal; 2020-02-22)
DX: O63.1 Prolonged second stage (of labor) (principal); O99.824 Streptococcus B carrier state complicating childbirth; Z3A.39 39 weeks gestation of pregnancy; Z37.0 Single live birth; Z86.19 Personal history of other infectious and parasitic diseases
CPT/HCPCS: 36415; 59409; 80048; 85025; 85610; 85730; 86780; 86850; 86900; 86901; 90715; C9803; U0003

== ENCOUNTER 2023-08-08 08:07 | Emergency (ER) | payer OTHER ==
[2023-08-08 08:39] VITALS: BP 137/78; PULSE 87; RESP 18; TEMP 98; BMI 27.2
[2023-08-08 09:21] LABS: EPI CELLS 7 /uL (0-25.1); HYALINE CASTS 3 /uL (0-3.1); PH,URINE 7.5 (5.0-8.0); URINE APPEARANCE CLEAR; URINE BACTERIA 2589 /uL (0-1359); URINE BILIRUBIN NEGATIVE (NEGATIVE); URINE COLOR YELLOW; URINE GLUCOSE (UA) NEGATIVE (NEGATIVE); URINE KETONE NEGATIVE (NEGATIVE); URINE LEUK ESTERASE 1+ (NEGATIVE); URINE NITRITE NEGATIVE (NEGATIVE); URINE PROTEIN TRACE (NEGATIVE); URINE RBC 416 /uL (0-23.9); URINE WBC 194 /uL (0-25.8)
[2023-08-08 09:36] LABS: HCG,QUALITATIVE URINE Negative
[2023-08-08] MEDS ORDERED: ONDANSETRON *ODT* 4 MG TABLET ONE (09:49)
[2023-08-08] MEDS: ONDANSETRON 4 MG TABLET PO ONE (09:51)
[2023-08-08] MEDS ORDERED: ACETAMINOPHEN 325 MG TABLET (FP) ONE (09:57)
[2023-08-08] MEDS: ACETAMINOPHEN 500 MG TABLET (FP) PO ONE (09:59)
[2023-08-08] MEDS ORDERED: SULFAMETHOXAZOLE/TRIMETHOPRIM 800MG/160MG D.S. TABLET ONE (10:35)
[2023-08-08] MEDS: SULFAMETHOXAZOLE/TRIMETHOPRIM 800MG/160MG D.S. TABLET PO ONE (10:53)
== END 2023-08-08 10:55 | disposition home or self-care (01) ==
LOC: JER 08:07
DX: R11.2 Nausea with vomiting, unspecified (principal); N39.0 Urinary tract infection, site not specified; R30.0 Dysuria; N30.01 Acute cystitis with hematuria
CPT/HCPCS: 36415; 81003; 84703; 87086; 87186; 87491; 87591; 87661; 99283-25

== ENCOUNTER 2024-03-14 09:07 | Emergency (ER) | payer OTHER ==
[2024-03-14 09:52] VITALS: TEMP 98.1; BMI 36.7
[2024-03-14] MEDS ORDERED: ACETAMINOPHEN INJECTION 100 ML ONE (10:19)
[2024-03-14] MEDS: ACETAMINOPHEN 1000 MG/100 ML BAG IVPB ONE (10:41)
[2024-03-14] MEDS: SODIUM CHLORIDE 1,000 ML IV STA (10:41)
[2024-03-14 10:48] LABS: BASO % 0.3 % (0-2.0); EOS % 0.7 % (0-4.5); HEMATOCRIT 41.1 % (32.4-45.2); HEMOGLOBIN 13.7 GM/dL (10.7-15.3); LYMPH % 24.5 % (8-40); MCH 28.4 pg (25.7-33.7); MCHC 33.2 g/dl (32.0-36.0); MEAN CELL VOLUME 85.5 fl (80-96); MEAN PLT VOLUME 7.6 fl (7.5-11.1); MONO % 4.9 % (3.8-10.2); NEUT % 69.6 % (42.8-82.8); PLATELET COUNT 305 10^3/uL (134-434); RBC 4.81 M/mm3 (3.60-5.2); RDW 13.5 % (11.6-15.6); WHITE BLOOD COUNT 6.7 K/mm3 (4.0-10.0)
[2024-03-14 11:04] LABS: POTASSIUM 3.4 mmol/L (3.5-5.1)
[2024-03-14 11:07] LABS: ALBUMIN 3.9 g/dl (3.4-5.0); BLOOD UREA NITROGEN 8.9 mg/dL (7-18); CALCIUM 9.1 mg/dL (8.5-10.1)
[2024-03-14 11:11] LABS: BILIRUBIN,TOTAL 0.6 mg/dL (0.2-1); CREATININE 0.7 mg/dL (0.55-1.3)
[2024-03-14 11:12] LABS: TOT PROT 7.8 g/dl (6.4-8.2)
[2024-03-14] MEDS ORDERED: KETOROLAC TROMETHAMINE 30 MG/1 ML VIAL ONE (12:19)
[2024-03-14] MEDS: KETOROLAC TROMETHAMINE 30 MG/1 ML VIAL IVPUSH ONE (12:27)
[2024-03-14 12:46] VITALS: BP 138/84; PULSE 79; RESP 15
[2024-03-14 16:51] LABS: HIV INTERPRETATION NEGATIVE (NEGATIVE)
== END 2024-03-14 12:47 | disposition home or self-care (01) ==
LOC: JER 09:07
PROC: 3E033NZ Introduction of Analgesics, Hypnotics, Sedatives into Peripheral Vein, Percutaneous Approach (ICD-10-PCS; principal; 2024-03-14)
PROC: 3E0333Z Introduction of Anti-inflammatory into Peripheral Vein, Percutaneous Approach (ICD-10-PCS; 2024-03-14)
PROC: 3E0337Z Introduction of Electrolytic and Water Balance Substance into Peripheral Vein, Percutaneous Approach (ICD-10-PCS; 2024-03-14)
DX: R51.9 Headache, unspecified (principal); H53.149 Visual discomfort, unspecified; R07.89 Other chest pain; Z20.822 Contact with and (suspected) exposure to COVID-19
CPT/HCPCS: 0241U-QW; 36415; 71046-TC-FY; 80053; 84484; 84703; 85025; 86803; 87389; 93005; 93010; 99285-25; J0131